=== PATIENT | female | born 1980 | race Caucasian/White ===

== ENCOUNTER 2017-04-10 12:58 | Emergency (ER) | payer BC, MEDICAID ==
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
== END 2017-04-10 14:54 | disposition home or self-care (01) ==
LOC: SCSER 12:58
DX: S16.1XXA Strain of muscle, fascia and tendon at neck level, initial encounter (principal); S30.0XXA Contusion of lower back and pelvis, initial encounter; G47.00 Insomnia, unspecified; I10 Essential (primary) hypertension; E66.9 Obesity, unspecified; F41.9 Anxiety disorder, unspecified; F32.9 Major depressive disorder, single episode, unspecified; Y04.8XXA Assault by other bodily force, initial encounter
CPT/HCPCS: 72125; 72170

== ENCOUNTER 2017-11-09 23:05 | Emergency (ER) | payer MEDICAID | END 2017-11-09 23:11 | disposition left against medical advice (07) | LOC: ERS 23:05 | DX: Z53.21 Procedure and treatment not carried out due to patient leaving prior to being seen by health care provider (principal) ==